=== PATIENT | male | born 1960 | race Caucasian/White ===

== ENCOUNTER 2018-06-11 16:12 | Emergency (ER) | payer MEDICAID ==
[~2018-06-11] VITALS: Ht 188 cm; Wt 133.5 kg
[2018-06-11 16:30] VITALS: Ht 188 cm; Wt 133.5 kg
[2018-06-11 21:53] VITALS: BP 145/94
== END 2018-06-11 21:53 | disposition home or self-care (01) ==
LOC: ED 16:12
DX: M77.02 Medial epicondylitis, left elbow (principal); S46.012A Strain of muscle(s) and tendon(s) of the rotator cuff of left shoulder, initial encounter; I16.0 Hypertensive urgency; W18.39XA Other fall on same level, initial encounter; Y93.89 Activity, other specified; Y92.89 Other specified places as the place of occurrence of the external cause; Y99.8 Other external cause status
CPT/HCPCS: J1885